=== PATIENT | female | born 1955 | race Caucasian/White ===

== ENCOUNTER 2025-03-25 08:43 | Emergency (ER) | payer MEDICARE, OTHER ==
[2025-03-25] MEDS ORDERED: Iopamidol 370 76% 100 ML VIAL ONE (09:00)
[2025-03-25 09:28] LABS: #Basophils 0.1 thou/uL (0.0-0.2); #Eosinophils 0.0 thou/uL (0.0-0.7); #Lymphocytes 1.6 thou/uL (1.20-3.40); #Monocytes 0.5 thou/uL (0.11-0.59); #Neutrophils 9.2 thou/uL (1.40-6.50); %Basophils 0.5 % (0.0-1.0); %Eosinophils 0.2 % (0.0-10.0); %Lymphocytes 14.3 % (21.0-51.0); %Monocytes 4.1 % (0.0-10.0); %Neutrophils 81.0 % (42.0-75.0); Hematocrit 48.9 % (36.0-47.0); Hemoglobin 15.7 g/dL (12.0-16.0); Mean Corpuscular Hemoglobin 28.9 pg (27.0-31.0); Mean Corpuscular Volume 90.1 fl (78.0-98.0); Platelet Count 348 10x3/uL (130-400); Red Blood Cell (RBC) Count 5.43 mill/uL (4.20-5.40); White Blood Cell (WBC) Count 11.4 10x3/uL (4.8-10.8)
[2025-03-25] MEDS ORDERED: Metoclopramide HCl 10 MG (2 mL) VIAL ONE (09:29)
[2025-03-25] MEDS ORDERED: Famotidine/PF 20 mg/2ml Vial ONE (09:29)
[2025-03-25 09:43] LABS: ALT (SGPT) 28 U/L (Less than 34); AST (SGOT) 39 U/L (11-34); Albumin 4.3 g/dL (3.1-4.5); Alkaline Phosphatase 65 U/L (40-110); Anion Gap 20 mmol/L (10-20); BUN (Urea Nitrogen) 17 mg/dL (9.8-20.1); Bilirubin, Total 0.6 mg/dL (0.3-1.2); Calc. Creatinine Clearance 0 mL/min (70-130); Calcium 9.5 mg/dL (7.8-10.44); Carbon Dioxide 19 mmol/L (23-31); Chloride 104 mmol/L (98-107); Globulin 3.3 g/dL (2.4-3.5); Glucose 156 mg/dL (80-115); Lipase 25 U/L (8-78); Potassium 3.9 mmol/L (3.5-5.1); Sodium 139 mmol/L (136-145)
[2025-03-25 09:44] LABS: Troponin I 0.023 ng/mL (< 0.028)
[2025-03-25 11:11] LABS: INR-International Normal Ratio 2.1; Prothrombin Time 24.1 sec (12.0-14.7)
== END 2025-03-25 11:51 | disposition short-term general hospital (02) ==
LOC: MADERS 08:43
DX: K35.80 Unspecified acute appendicitis (principal)
CPT/HCPCS: 71045; 71275; 74174; 80053; 83690; 84484; 85025; 85610; 93005; 94760; 96361; 96365; 96372; 96375; J1308; J2250; J2270; J2543; J2765; J7120; Q9967